=== PATIENT | male | born 1965 ===

== ENCOUNTER → 2018-08-13 21:02 | Outpatient (REF) | payer BC, SELFPAY ==
[2018-08-13 22:01] LABS: Add Manual Diff / Slide Review NO; Basophils Percent Auto 1.8 % (0-2); Eosinophils Percent Auto 0.9 % (2-4); Hematocrit 51.5 % (41-53); Hemoglobin 17.2 g/dL (13.5-17.5); Lymphocytes Percent Auto 25.4 % (25-40); Mean Corpuscular HGB Conc 33.3 % (30-36); Mean Corpuscular Hemoglobin 32.5 PG (26-34); Mean Corpuscular Volume 97.7 fL (80-100); Monocytes Percent Auto 11.2 % (3-14); Neutrophils Absolute Auto 2600 /uL (1500-7000); Neutrophils Percent Auto 60.7 % (50-75); Platelet Count 302 X10^3/uL (150-400); Red Blood Cell Count 5.28 X10^6/uL (4.5-5.9); Red Cell Distribution Width 13.4 % (11.6-14.8); White Blood Cell Count 4.4 X10^3/uL (4.5-11.0)
[2018-08-15 17:54] LABS: Sex Hormone Binding Globulin 35 nmol/L (10-50)
[2018-08-16 14:13] LABS: PSA Total 1.55 ng/mL (< 4.01)
[2018-08-16 15:28] LABS: Dehydroepiandrosterone Sulfate 98 mcg/dL (38-313)
[2018-08-16 15:41] LABS: Estradiol 24 pg/mL (< 40)
[2018-08-19 04:31] LABS: Testosterone Free 248.5 pg/mL (35.0-155.0); Testosterone Total 1272 ng/dL (250-1100)
== END ==
LOC: LAB 21:02
PROVIDERS: Visit Provider Naturopath
DX: C90.00 Multiple myeloma not having achieved remission (principal); E29.1 Testicular hypofunction; R53.83 Other fatigue
CPT/HCPCS: 36415; 82627; 82670; 84153; 84154; 84270; 84402; 84403; 85025